=== PATIENT | female | born 1990 | race Caucasian/White ===

== ENCOUNTER 2019-01-18 15:53 | Emergency (ER) | payer SELFPAY ==
[2019-01-18 16:53] VITALS: BP 128/73
--- NOTE | 2019-01-18 18:04 | UC ---
Throat Pain/Nasal Andrew HPI - HPI Summary HPI Summary: 28 y/o female presents to the urgent care c/o sore throat, fever w/ swollen tonsils and exudate for 2 days. Pt has been taken Ibuprofen PO w/o any improvement. Pt states pain w/ swallowing is 6/10. This morning she woke up w/ mild ZIEGLER. Pt denies nasal congestion, cough, SOB, wheezing, chest pain, abdominal pain, N/V/d. - History of Current Complaint Chief Complaint: UCRespiratory Stated Complaint: THROAT PAIN Time Seen by Provider: 01/18/19 17:31 Hx Obtained From: Patient Hx Last Menstrual Period: 01/16/19 ?: No Onset/Duration: Gradual Onset, Lasting Days - 2 days, Still Present, Worse Since - last night Severity: Moderate Pain Intensity: 6 Pain Scale Used: 0-10 Numeric Cough: None Associated Signs & Symptoms: Positive: Dysphagia, Fever. Negative: Wheezing, Nasal Discharge - Epiglottits Risk Factors Epiglottis Risk Factors: Negative - Allergies/Home Medications Allergies/Adverse Reactions: Allergies Allergy/AdvReac Type Severity Reaction Status Date / Time No Known Allergies Allergy Verified 01/18/19 16:52 PMH/Surg Hx/FS Hx/Imm Hx Previously Healthy: Yes - Pt denies PMHX - Surgical History Surgical History: None - Family History Known Family History: Positive: None - Pt denies FMHX - Social History Occupation: Employed Full-time Lives: With Family Alcohol Use: Weekly Substance Use Type: None Smoking Status (MU): Current Some Day Smoker Review of Systems All Other Systems Reviewed And Are Negative: Yes Constitutional: Positive: Fever Skin: Positive: Negative Eyes: Positive: Negative ENT: Positive: Sore Throat Respiratory: Positive: Negative Cardiovascular: Positive: Negative Gastrointestinal: Positive: Negative Genitourinary: Positive: Negative Motor: Positive: Negative Neurovascular: Positive: Negative Musculoskeletal: Positive: Negative Neurological: Positive: Headache Psychological: Positive: Negative Is Patient Immunocompromised?: No Physical Exam - Summary Physical Exam Summary: VITAL SIGNS: Reviewed. GENERAL: Patient is a well developed and nourished who is sitting comfortable in the examining table. Patient is not in any acute respiratory distress. HEAD AND FACE: No signs of trauma. No ecchymosis, hematomas or skull depressions. No sinus tenderness. EYES: PERRLA, EOMI x 2, No injected conjunctiva, no nystagmus. No photophobia. EARS: Hearing grossly intact. Ear canals and tympanic membranes are within normal limits. MOUTH: Positive pharynx with erythema, exudates, palatal petechiae. B/L tonsillar enlargement with exudate. Uvula in midline. NECK: Supple, trachea is midline, Positive anterior cervical lymphadenopathy, no JVD, no carotid bruit, no c-spine tenderness, neck with full ROM. No meningeal signs, no Kernig's or brudzinskis signs. CHEST: Symmetric, no tenderness at palpation LUNGS: Clear to auscultation bilaterally. No wheezing or crackles. CVS: Regular rate and rhythm, S1 and S2 present, no murmurs or gallops appreciated. ABDOMEN: Soft, non-tender. No signs of distention. No rebound no guarding, and no masses palpated. Bowel sounds are normal. EXTREMITIES: FROM in all major joints, no edema, no cyanosis or clubbing. NEURO: Alert and oriented x 3. No acute neurological deficits. Speech is normal and follows commands. SKIN: Dry and warm Triage Information Reviewed: Yes Vital Signs: Initial Vital Signs Temp 98.0 F 01/18/19 16:48 Pulse 97 01/18/19 16:48 Resp 18 01/18/19 16:48 BP 128/73 01/18/19 16:48 Pulse Ox 97 01/18/19 16:48 Throat Pain/Nasal Course/Dx - Course Course Of Treatment: 28 y/o female presents to the urgent care c/o sore throat, fever w/ swollen tonsils and exudate for 2 days. Pt has been taken Ibuprofen PO w/o any improvement. Pt states pain w/ swallowing is 6/10. This morning she woke up w/ mild ZIEGLER. Pt denies nasal congestion, cough, SOB, wheezing, chest pain, abdominal pain, N/V/d. Hx obtained. Pt w/ tonsillitis and moderate exudate on examination. Rapid strep ordered: negative.Pt declined Monospot and throat culture and request antibiotics. Pt Rx Amoxicillin PO and Prednisone PO as directed to alleviate symptoms. Advised to continue taking Ibuprofen PO for pain and swelling. PT Advised on hand washing to avoid spreading. Also advised to rest, eat well and avoid strenuous exercise. If symptoms do not improve or worsen advised to return to the urgent care or f/u with her PCP for further evaluation and treatment. PT understood and agreed w/ plan of care. - Differential Dx/Diagnosis Differential Diagnosis/HQI/PQRI: Laryngitis, Mononucleosis, Otitis Media, Peritonsillar Abscess, Pharyngitis, Tonsillitis, URI Provider Diagnosis: Tonsillitis with exudate Discharge ED - Sign-Out/Discharge Documenting (check all that apply): Patient Departure - d/c home All imaging exams completed and their final reports reviewed: No Studies - Discharge Plan Condition: Stable Disposition: HOME Prescriptions: Amoxicillin PO (*) [Amoxicillin 500 MG CAP*] 500 mg PO Q12H #20 cap predniSONE TAB* [Deltasone 20 MG TAB*] 20 mg PO DAILY #11 tab Patient Education Materials: Tonsillitis (ED) Referrals: [facility] [place] [facility] REFERRAL [Outside] - 3 Days Additional Instructions: 1- Please take the full course of the antibiotic to avoid resistance.Take yogurts w/ probiotics or Culturelle to protect your GI system 2- Take Prednisone PO as directed to alleviate swelling 3-Please take ibuprofen PO q6-8hrs prn as instructed after meals to alleviate pain and swelling. Increase fluid intake, eat well, rest and avoid strenuous exercise 4-If symptoms do not improve or worsen please return to the urgent care or f/u with your PCP for further evaluation and treatment. - Billing Disposition and Condition Condition: STABLE Disposition: Home - Attestation Statements Provider Attestation: Per institutional requirements, I have reviewed the chart, however, I was not consulted specifically or made aware of this patient by the midlevel provider. I did not personally evaluate, interact with , or disposition this patient.
== END 2019-01-18 18:21 | disposition home or self-care (01) ==
LOC: UCEAST 15:53
DX: J03.90 Acute tonsillitis, unspecified (principal); F17.210 Nicotine dependence, cigarettes, uncomplicated
CPT/HCPCS: 87651; 99202; G0463

== ENCOUNTER 2019-02-02 15:57 | Emergency (ER) | payer SELFPAY ==
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
[2019-02-02] MEDS ORDERED: HYDROcodone/ACETAMIN 5-325 MG* 1 TAB PO ONE (16:18)
[2019-02-02] MEDS ORDERED: Lidocaine 1% MDV 20 ML INJ ONE (17:08)
[2019-02-02] MEDS ORDERED: Lidocaine 1% INJ* 10 MG/ML 30 ML SDV ONE (17:11)
[2019-02-02] MEDS ORDERED: Morphine 4 MG/ML VIAL (1 ml) 4 MG/ML VIAL IV ONE (17:29)
[2019-02-02] MEDS ORDERED: NS 0.9% 1000 ML** 1,000 ML IV ONE (17:29)
[2019-02-02] MEDS ORDERED: Ondansetron INJ* 2 MG/ML VIAL IV ONE (17:29)
[2019-02-02] MEDS ORDERED: Lidocaine 1% INJ* 10 MG/ML 30 ML SDV INJ ONE (19:38)
[2019-02-02 20:02] VITALS: BP 129/83
== END 2019-02-02 20:00 | disposition home or self-care (01) ==
LOC: ED 15:57
DX: S82.852A Displaced trimalleolar fracture of left lower leg, initial encounter for closed fracture (principal); V19.9XXA Pedal cyclist (driver) (passenger) injured in unspecified traffic accident, initial encounter; Y93.55 Activity, bike riding; Y92.9 Unspecified place or not applicable; F17.200 Nicotine dependence, unspecified, uncomplicated
CPT/HCPCS: 96361; 96374; 96375; 99282; J2270; J2405

== ENCOUNTER 2019-02-12 05:48 | Day surgery (SDC) | payer SELFPAY ==
[~2019-02-12 05:48] MED LIST: Buffered Lidocaine 1% SYRIN* 1 ML/SYRINGE INTRADERM ONE
[2019-02-12] MEDS ORDERED: Gabapentin CAP(*) 400 MG PO ONE ×2 (06:00→06:47)
[2019-02-12] MEDS ORDERED: Acetaminophen TAB* 325 MG PO ONE (06:00)
[2019-02-12] MEDS ORDERED: Famotidine IV* 10 MG/ML 2 ML (20 mg) IV ONE (06:00)
[2019-02-12] MEDS ORDERED: Lactated Ringers 1000 ML Bag* 1,000 ML IV SCH (06:00)
[2019-02-12] MEDS ORDERED: Acetaminophen TAB* 325 MG ONE (06:47)
[2019-02-12] MEDS ORDERED: Famotidine IV* 10 MG/ML 2 ML (20 mg) ONE (06:47)
[2019-02-12] MEDS ORDERED: ceFAZolin 2 GM in NS PREMIX(*) 2 GM/100 ML BAG IVPB ONE (06:48)
[2019-02-12] MEDS ORDERED: Bupivacaine 0.25% W/EPI* 10 ML SDV ONE (07:11)
[2019-02-12] MEDS ORDERED: fentaNYL* 50 MCG/ML 2 ML VIAL (100 MCG VIAL) ONE ×3 (07:18→11:24)
[2019-02-12] MEDS ORDERED: Midazolam* 1 MG/ML 2 ML VIAL (2 MG) ONE ×2 (07:18→08:01)
[2019-02-12] MEDS ORDERED: ROPIVACAINE 5 MG/ML 30 ML BTL (0.5%) ONE (07:27)
[2019-02-12] MEDS ORDERED: Lidocaine 2% PF * 5 ML VIAL ONE (07:55)
[2019-02-12] MEDS ORDERED: Propofol* 10 MG/ML 20 ML BTL ONE (07:56)
[2019-02-12] MEDS ORDERED: Ondansetron INJ* 2 MG/ML VIAL ONE (07:56)
[2019-02-12] MEDS ORDERED: Dexamethasone IV* 4 MG/ML 1 ML (4 MG) ONE ×2 (07:56→08:37)
[2019-02-12] MEDS ORDERED: Ketorolac INJ* 30 MG/ML 1 ML VIAL ONE (07:56)
[2019-02-12] MEDS ORDERED: Dexmedetomidine* 200 MCG/2 ML 2 ML VIAL ONE (08:12)
[2019-02-12] MEDS ORDERED: HYDROmorphone INJ1* 1 MG/ML SYRINGE ONE ×2 (08:38→11:26)
[2019-02-12] MEDS ORDERED: Levalbuterol 0.63MG/3ML NEB* UNIT OF USE INH PRN (08:50)
[2019-02-12] MEDS ORDERED: Ondansetron INJ* 2 MG/ML VIAL IV PRN (08:50)
[2019-02-12] MEDS ORDERED: Naloxone* 0.4 MG/ML 1 ML VIAL IV PRN (08:50)
[2019-02-12] MEDS ORDERED: DiMENhydriNATE IV* 50 MG/ML VIAL IV PUSH PRN (08:50)
[2019-02-12] MEDS ORDERED: diPHENhydraMINE IV* 50 MG/ML 1 ml VIAL (BENADRYL) IV PRN (08:50)
[2019-02-12] MEDS: fentaNYL* 50 MCG/ML 2 ML VIAL (100 MCG VIAL) IV PRN ×4 (10:49→11:35)
[2019-02-12] MEDS ORDERED: oxyCODONE/Acetamin 5/325 MG* TAB ONE ×2 (11:02→13:00)
[2019-02-12] MEDS: oxyCODONE/Acetamin 5/325 MG* TAB PO PRN ×2 (11:02→13:01)
[2019-02-12] MEDS: HYDROmorphone INJ1* 1 MG/ML SYRINGE IV PRN ×2 (11:41→11:53)
[2019-02-12 12:03] VITALS: BP 109/63
--- NOTE | 2019-02-13 03:27 | OP ---
DATE OF OPERATION: 02/12/19 [facility] DATE OF : 89 SURGEON: Terrance Dee MD. [employer] SALES RECORD SUPERVISOR: PELON Krause. A physician education assistant was required for the full extent of the procedure for assistance with patient positioning, retraction, instrumentation, and closure. ANESTHESIOLOGIST: Dr. Rickie June. ANESTHESIA: General anesthesia, popliteal block regional anesthesia, local anesthesia. PRE-OP DIAGNOSIS: Left ankle trimalleolar fracture, displaced. POST-OP DIAGNOSIS: Left ankle trimalleolar fracture, displaced. OPERATIVE PROCEDURE: Open reduction internal fixation, left ankle trimalleolar fracture without posterior fixation. ANTIBIOTICS: Ancef 2 g IV. IV FLUIDS: 700 cc crystalloid. [id number] TIME: 105 minutes. TOURNIQUET TIME: Tourniquet time recorded by operating room staff was 117 minutes at 300 mmHg left thigh. While the tourniquet remains on longer while the splint is applied and hardening, I suspect the 117 minutes is higher than the true tourniquet time was. RADIATION: C-arm was utilized. SPECIMEN: None. IMPLANTS: Synthes one-third tubular plate 7 holes was placed laterally. Through this plate, I placed 3.5-mm cortical nonlocking, 3.5-mm locking, and 4.0 -mm cancellous nonlocking screws. I also placed a lag technique screw across the fracture site, a 3.5-mm nonlocking cortical screw. I also placed 4.0-mm partially threaded cannulated screws medially. These were each maximal length, 15 mm with long threads. ESTIMATED BLOOD LOSS: Minimal. COMPLICATIONS: None. INDICATIONS FOR PROCEDURE: The patient is a 28-year-old woman; she injured herself 12 days preoperatively with a fall. Emergency department staff performed a reduction maneuver in the emergency department to improve the patient's significant lateral talar displacement at the time of the injury. The patient was splinted and followed up with me in clinic. The patient still had significant soft tissue swelling. I casted her and instructed her on elevation and the patient presented today for definitive surgery. I obtained a CT scan when the patient was in the emergency room and determined that given the size, character, and displacement of the posterior malleolus fracture fragments that posterior fixation was not required. Discussed with the patient risks and potential complications of surgery including bleeding, infection, nerve or blood vessel injury, most importantly with ankle fractures, infection and wound breakdown. Discussed possibility of her wanting hardware removed in the future. Discussed postoperative limitations. DESCRIPTION OF PROCEDURE: In preoperative holding, the patient signed a written consent. Operative extremity was marked in preoperative holding. The short-leg cast was removed in preoperative holding. The patient underwent regional nerve block by Anesthesia in preoperative holding. The patient was taken back to the operating room and placed supine on the operating room table. Sedated and intubated. [place] bump was placed under the left hemipelvis. Tourniquet was placed around the left proximal thigh. Bone foam was placed under the left lower extremity. Left lower extremity was prepped and draped. Surgical time-out was performed. Esmarch was applied and tourniquet was elevated. I started laterally. I made a standard skin incision for approach to the lateral malleolus. Dissected down to bone. Identified fracture site. I debrided it with curette, rongeur, and Bovie. I noted a small branch of the superficial peroneal nerve anteriorly. I performed reduction maneuver. I used sharp-tip bone clamp to hold reduction. Placed a lag screw from posterior and distal to anterior and proximal across the fracture site. Excellent compression. The head might have even countersunk a little bit. This lag screw held reduction nicely. Sized a 7-hole plate to be appropriate. I spent some time contouring the plate. Applied the plate, placed nonlocking screws proximal and distal. I then brought C- arm in and identified excellent reduction at the fracture site and excellent placement of hardware. Filled up the plate proximal and distal to the fracture with nonlocking and locking screws. Noting that the lag screw was slightly proud anteriorly, I turned it back several parts of a revolution. I considered inserting a shorter screw; however, I thought I would lose some of the excellent reduction that I had across the fracture site. Irrigation. Closure of some deep fascia with [id number] stitches using Vicryl 2-0 suture. Closure of subcutaneous tissue with buried simple stitch using Vicryl 3-0 suture. Moved to the medial ankle. Standard skin incision for medial approach to the ankle. Dissected down to bone. Debrided periosteum from the fracture site. Debrided fracture site with curette, rongeur, and Bovie. Reduced the bone. Prior to reducing the bone, I irrigated well the joint to try to free up and remove any loose bodies, although I never encountered any large loose bodies. Reduced bone. Placed 1 K-wire to keep the fragment in place. I next placed 2 K -wires for my future screw sites. I was able to visualize excellently the fracture site and have a feel for where these were placed. C-arm was brought in. Ensured both of these K-wires to be in good position. I was able to use maximal length screws. I next drilled and placed my cannulated screws. Neither required a washer. The bone purchase was excellent. X-rays, three views, showed excellent reduction of bone. Excellent placement of the hardware. I should state that throughout all of my imaging once the lateral malleolus was reduced, the posterior malleolus, it was difficult to see any type of displacement of that very small fragment of bone posteriorly, so I was happy with that reduction as well. I performed an external rotation stress test and there was no gapping of any clear space, so no syndesmotic screw required. Irrigation medially. A closure medially as well as some additional part of the lateral wound of subcutaneous tissue with buried simple stitches using Vicryl 3- 0 suture. Closure of the skin on each side with a running stitch using nylon 3-0 suture. Some local anesthesia injected about subcutaneous tissue. Xeroform, 4x4s, sterile Webril, nonsterile Webril, plaster posterior slab, followed by sugar tong, followed by Alberto bandage. The patient was awakened, extubated, and transferred to the PACU. DISPOSITION: The patient will remain in her splint. The importance of elevation on 4 to 5 pillows, especially for the first 4 days postoperatively was stressed. Percocet as needed for pain control, Keflex for 5 days for infection prophylaxis, and aspirin for 2 weeks for DVT prophylaxis. The patient will follow up with me 10 to 14 days postoperatively. [id number]/[facility] #: [id number] [facility]
== END 2019-02-12 13:04 | disposition home or self-care (01) ==
LOC: OR 05:48
PROVIDERS: ATTEND Orthopaedic Surgery
DX: S82.852A Displaced trimalleolar fracture of left lower leg, initial encounter for closed fracture (principal); V18.0XXA Pedal cycle driver injured in noncollision transport accident in nontraffic accident, initial encounter; Y93.55 Activity, bike riding; Y92.9 Unspecified place or not applicable; F41.8 Other specified anxiety disorders; Z72.0 Tobacco use; G89.18 Other acute postprocedural pain
CPT/HCPCS: 76000; 81025; A9270-GY; C1713; C1776; J0690; J1100; J1170; J1885; J2250; J2405; J2704; J2795; J3010